=== PATIENT | female | born 1935 | race Caucasian/White ===

== ENCOUNTER → 2017-07-12 | Day surgery (SDC) | payer BC ==
[~2017-07-12] MED LIST: HYDROmorphone 2 MG/ML VIAL IV; LIDOCAINE 1% PF 2 ML VIAL. ID; LIDOCAINE 2% PF Vial for OR 5 ML VIAL.; MORPHINE SULFATE 2 MG/ML DISP.SYRIN. IV; ONDANSETRON PF 4 MG/2 ML VIAL. IV; PROCHLORPERAZINE 10 MG/2 ML VIAL. IV; PROPOFOL 20 ML IV; fentaNYL PF VIAL 100 MCG/2 ML VIAL IV
[2017-07-12] MEDS: IV RINGERS,LACTATED 1000ML 1,000 ML IV (06:31)
== END | disposition home or self-care (01) ==
LOC: ENDOS 05:55
DX: K64.0 First degree hemorrhoids (principal); K57.30 Diverticulosis of large intestine without perforation or abscess without bleeding; F41.9 Anxiety disorder, unspecified; Z86.718 Personal history of other venous thrombosis and embolism; Z90.710 Acquired absence of both cervix and uterus; Z87.440 Personal history of urinary (tract) infections; Z87.01 Personal history of pneumonia (recurrent); Z87.39 Personal history of other diseases of the musculoskeletal system and connective tissue; Z85.3 Personal history of malignant neoplasm of breast
CPT/HCPCS: 45378; J2704

== ENCOUNTER 2018-11-25 07:43 | Emergency (ER) | payer BC, MEDICARE ==
[~2018-11-25] VITALS: Ht 167.6 cm; Wt 85.7 kg
[~2018-11-25 07:43] MED LIST changes: +ACET325T9 PO; +AZIT250T PO; +Albuterol Sulfate NEB; +BUDE10.2 IH; +CALC1TAB PO; +CEFP200T PO; +DOXY25TA16 PO; +GUAI600T47 PO; -HYDROmorphone 2 MG/ML VIAL IV; -LIDOCAINE 1% PF 2 ML VIAL. ID; -LIDOCAINE 2% PF Vial for OR 5 ML VIAL.; +LISI-334 PO; -MORPHINE SULFATE 2 MG/ML DISP.SYRIN. IV; +MULT-658 PO; -ONDANSETRON PF 4 MG/2 ML VIAL. IV; +OXYC1TAB15 PO; +PRED20TA PO; -PROCHLORPERAZINE 10 MG/2 ML VIAL. IV; -PROPOFOL 20 ML IV; +PSYL0.5215 PO; +RIVA10TA PO; +TIOT4MIS3 IH; +TRAZ-118 PO; +VENTOLIN HFA18 GM IH; +WARF-31 PO; +WARF7.5T45 PO; -fentaNYL PF VIAL 100 MCG/2 ML VIAL IV
[2018-11-25 07:55] VITALS: BP 144/77
[2018-11-25] MEDS ORDERED: BENZONATATE 100 MG CAPSULE. PO ONE (08:15)
--- NOTE | 2018-11-25 08:32 | RAD ---
PA and lateral chest. HISTORY: Cough, short of air, sore throat PA and lateral views were taken of the chest. There is linear scarring on the left without change from an old study. Heart is normal in size. There is no pleural effusion or heart failure. There are no acute infiltrates. IMPRESSION: 1. Linear scarring on the left. 2. No acute infiltrates. Electronically signed by: Filippo Almonte MD (11/25/2018 8:28 AM) [facility]
[2018-11-25] MEDS ORDERED: AZIT250T PO (09:26)
[2018-11-25] MEDS ORDERED: HYDR115S2 PO (09:26)
--- NOTE | 2018-11-25 09:26 | PHYS DOC ---
Past Medical History Past Medical History: Asthma, Cancer, Hypertension, Pneumonia, Other Additional Past Medical Histor: INSOMNIA, BRAIN TUMOR- RESOLVED, UTERINe/breast ,CHRONIC BACK PAIN Past Surgical History: Hysterectomy Additional Past Surgical Histo: lymph nodes removed rt side Alcohol Use: None Drug Use: None Adult General Chief Complaint Chief Complaint: SORE THROAT HPI HPI Patient is a 83 year old female who presents with complaining of sore throat. Patient complaining of sore throat since yesterday with nasal congestion and had productive cough with clear sputum since last night as needed. Patient denies shortness of breath, chest pain, nausea and vomiting, diarrhea and constipation, urinary symptom, fever and chills and sick contact. Review of Systems Review of Systems Constitutional: Denies fever or chills [] Eyes: Denies change in visual acuity, redness, or eye pain [] HENT: Reports nasal congestion and sore throat Respiratory: Productive cough, denies shortness of breath Cardiovascular: No additional information not addressed in HPI [] GI: Denies abdominal pain, nausea, vomiting, bloody stools or diarrhea [] : Denies dysuria or hematuria [] Musculoskeletal: Denies back pain or joint pain [] Integument: Denies rash or skin lesions [] Neurologic: Denies headache, focal weakness or sensory changes [] Endocrine: Denies polyuria or polydipsia [] All other systems were reviewed and found to be within normal limits, except as documented in this note. Current Medications Current Medications Current Medications Medications (Trade) Dose Ordered Sig/Dolores Start Time Stop Time Status Last Admin Dose Admin Benzonatate (Tessalon Perle) 100 mg 1X ONCE 11/25/18 08:15 11/25/18 08:16 DC 11/25/18 08:15 100 MG Allergies Allergies Allergies Coded Allergies Type Severity Reaction Last Updated Verified No Known Drug Allergies 07/12/17 No Physical Exam Physical Exam Constitutional: Well developed, well nourished, mild distress, non-toxic appearance. [] HENT: Normocephalic, atraumatic, bilateral external ears normal, oropharynx moist, pharyngeal erythema without edema, no oral exudates, nose normal. [] Eyes: PERRLA, EOMI, conjunctiva normal, no discharge. [] Neck: Normal range of motion, no tenderness, supple, no stridor. [] Cardiovascular:Heart rate regular rhythm, no murmur [] Lungs & Thorax: Bilateral breath sounds clear to auscultation [] Abdomen: Bowel sounds normal, soft, no tenderness, no masses, no pulsatile masses. [] Skin: Warm, dry, no erythema, no rash. [] Back: No tenderness, no CVA tenderness. [] Extremities: No tenderness, no cyanosis, no clubbing, ROM intact, no edema. [] Neurologic: Alert and oriented X 3, normal motor function, normal sensory function, no focal deficits noted. [] Psychologic: Affect normal, judgement normal, mood normal. [] Current Patient Data Vital Signs Vital Signs Date Time Temp Pulse Resp B/P (MAP) Pulse Ox O2 Delivery O2 Flow Rate FiO2 11/25/18 07:55 98.3 84 18 144/77 (99 96 98.3 Lab Values Laboratory Tests Test 11/25/18 08:00 Group A Streptococcus Rapid Negative (NEGATIVE) EKG EKG [] Radiology/Procedures Radiology/Procedures [facility] [address] [place], [place] [id number] IMAGING REPORT Signed PATIENT: JUANIS RICE ACCOUNT: [id number] : 1935 LOCATION: ER AGE: 83 SEX: F EXAM STATUS: REG ER ORD. PHYSICIAN: MERE BILL MD REASON: cough PROCEDURE: CHEST PA & LATERAL PA and lateral chest. HISTORY: Cough, short of air, sore throat PA and lateral views were taken of the chest. There is linear scarring on the left without change from an old study. Heart is normal in size. There is no pleural effusion or heart failure. There are no acute infiltrates. IMPRESSION: 1. Linear scarring on the left. 2. No acute infiltrates. Electronically signed by: Filippo Almonte MD (11/25/2018 8:28 AM) [facility] DICTATED and SIGNED BY: FILIPPO ALMONTE MD DATE: 11/25/1828 Course & Med Decision Making Course & Med Decision Making Pertinent Labs and Imaging studies reviewed. (See chart for details) Evolution of patient in ER showed 83-year-old female patient with history of asthma and COPD did not home oxygen with complaining of URI symptoms since yesterday. Patient has negative strep test and chest x-ray and felt better with Tessalon given in ER. Plan to discharge patient home to diagnose of upper respiratory infection. Dragon Disclaimer Dragon Disclaimer This electronic medical record was generated, in whole or in part, using a voice recognition dictation system. Departure Departure Impression: Primary Impression: Upper respiratory infection Disposition: HOME, SELF-CARE (at 0 [phone]) Condition: IMPROVED Referrals: QUENTIN POLANCO MD (PCP) Patient Instructions: Cough, Adult, Upper Respiratory Infection, Adult Additional Instructions: Drink plenty of liquids Follow-up with your primary care physician in 3-5 days Return to ER if not getting better Scripts Azithromycin (ZITHROMAX) 250 Mg Tablet 1 PKG PO UD for infection, #1 PKG Prov: MERE BILL MD 11/25/18 Hydrocodone/Chlorphen P-Stirex (Tussionex Pennkinetic Susp) 115 Ml Edilia.er.12h 5 ML PO BID for cough and congestion, #60 ML Prov: MERE BILL MD 11/25/18 MERE BILL MD Nov 25, 2018 09:26
== END 2018-11-25 10:00 | disposition home or self-care (01) ==
LOC: ER 07:43
DX: J06.9 Acute upper respiratory infection, unspecified (principal); I10 Essential (primary) hypertension; J45.909 Unspecified asthma, uncomplicated
CPT/HCPCS: 71046; 87070; 87880; 99284; 99285

== ENCOUNTER → 2019-12-03 | Outpatient (CLI) | payer BC ==
[~2019-12-03] MED LIST changes: +HYDR115S2 PO
--- NOTE | 2019-12-03 12:53 | KCIC ---
Examination: Ultrasound left neck HISTORY: History of large area of fullness in the left knee COMPARISON: None available. Findings/ impression: Ultrasound of the left neck in the region of fullness demonstrate no obvious evidence of mass or lesion. If clinical suspicion persists consider CT for better evaluation. Electronically signed by: Kareem Wolfe MD (12/03/2019 12:50 PM) [id number]
== END | disposition home or self-care (01) ==
LOC: KCIC US 10:13
PROVIDERS: ATTEND Family Medicine
DX: R25.1 Tremor, unspecified (principal)
CPT/HCPCS: 76536

== ENCOUNTER → 2019-12-11 | Outpatient (CLI) | payer BC ==
--- NOTE | 2019-12-11 12:54 | RAD ---
Chest, PA and Lateral: Technique: PA and lateral views of the chest were obtained. History: Dyspnea. Comparison: 11/25/2018. Findings: The cardiomediastinal silhouette grossly appears unremarkable. Mild prominent appearing bilateral interstitial lung markings likely chronic interstitial changes. Moderate degenerative changes thoracic spine IMPRESSION: No acute cardiopulmonary findings. Electronically signed by: Kareem Wolfe MD (12/11/2019 12:51 PM) [id number]
== END ==
LOC: RAD 12:03
PROVIDERS: ATTEND Family Medicine
DX: M47.814 Spondylosis without myelopathy or radiculopathy, thoracic region (principal); R06.00 Dyspnea, unspecified
CPT/HCPCS: 71046

== ENCOUNTER → 2019-12-23 | Outpatient (CLI) | payer BC ==
--- NOTE | 2019-12-23 15:22 | RAD ---
CT HEAD INDICATION: Trauma COMPARISON: 04/09/2040 Exposure: One or more of the following individualized dose reduction techniques were utilized for this examination: 1. Automated exposure control 2. Adjustment of the mA and/or kV according to patient size 3. Use of iterative reconstruction technique TECHNIQUE: 5 mm contiguous axial images were obtained from the skull base to the vertex in both bone and soft tissue algorithm. FINDINGS: No abnormal attenuation within the brain parenchyma. No evidence of acute intracranial hemorrhage. No extra-axial fluid collections. No mass effect or midline shift. Ventricular size is appropriate. Basal cisterns are patent. No fractures identified.Abraham-white differentiation is preserved.Globes and orbits are within normal limits. Paranasal sinuses and mastoid air cells are clear. IMPRESSION: No acute intracranial findings. Electronically signed by: Kareem Wolfe MD (12/23/2019 3:19 PM) [id number]
== END | disposition home or self-care (01) ==
LOC: CT 14:37
PROVIDERS: ATTEND Family Medicine
DX: R25.1 Tremor, unspecified (principal)
CPT/HCPCS: 70450

== ENCOUNTER → 2020-01-10 | Outpatient (CLI) | payer BC ==
[~2020-01-10] MED LIST changes: +IOHEXOL 350 MG/ML 100 ML VIAL. IV ONE
--- NOTE | 2020-01-10 10:18 | RAD ---
Examination: CT angiography chest with IV contrast. HISTORY: History of chest pain COMPARISON: 12/28/2014 TECHNIQUE: Axial CT angiographic images of chest with IV contrast. Coronal and sagittal 3-D MIP reformats are performed Exposure: One or more of the following individualized dose reduction techniques were utilized for this examination: 1. Automated exposure control 2. Adjustment of the mA and/or kV according to patient size 3. Use of iterative reconstruction technique. FINDINGS: The visualized thyroid gland grossly appears unremarkable. The central airways are patent. Mild cardiomegaly. The caliber of the aorta grossly appears unremarkable. There is no evidence of filling defect identified in the main pulmonary arterial trunk and right and left main pulmonary arteries and the visualized lobar, segmental branches of the pulmonary arteries.Linear atelectasis or infiltrate identified in the left lingula. The visualized liver, adrenals, spleen grossly appears unremarkable. Moderate degenerative changes thoracic spine. There is a 2 cm cystic structure identified in the right breast smaller compared to prior exam probably old hematoma or seroma. IMPRESSION: 1. No evidence of pulmonary embolism. 2. Linear atelectasis or infiltrate left lingula. 3. There is a 2 cm cystic structure identified in the right breast smaller compared to prior exam probably old hematoma or seroma. Electronically signed by: Kareem Wolfe MD (01/10/2020 10:15 AM) [id number]
== END | disposition home or self-care (01) ==
LOC: CT 08:24
PROVIDERS: ATTEND Internal Medicine Pulmonary Disease
DX: I51.7 Cardiomegaly (principal); M47.814 Spondylosis without myelopathy or radiculopathy, thoracic region; Z86.711 Personal history of pulmonary embolism
CPT/HCPCS: 71275; Q9967

== ENCOUNTER 2020-09-03 10:34 | Emergency (ER) | payer BC ==
[~2020-09-03] VITALS: Ht 165.1 cm; Wt 95.0 kg
[~2020-09-03 10:34] MED LIST changes: -IOHEXOL 350 MG/ML 100 ML VIAL. IV ONE; -LISI-334 PO; +LISI20TA18 PO
--- NOTE | 2020-09-03 12:24 | PHYS DOC ---
Past Medical History Past Medical History: Asthma, Cancer, COPD, Hypertension, Pneumonia, Other Additional Past Medical Histor: INSOMNIA, BRAIN TUMOR- RESOLVED, UTERINe/breast,CHRONIC BACK PAIN Past Surgical History: Hysterectomy Additional Past Surgical Histo: lymph nodes removed rt side Smoking Status: Never Smoker Alcohol Use: None Drug Use: None General Adult EDM: Chief Complaint: SHORTNESS OF BREATH HPI: HPI: Patient is a 84 year old female with history of COPD, asthma, hypertension, who presents to the ED today complaining of shortness of breath especially on exertion, symptoms for a week. Has tried her inhaler with no relief. Denies any unusual cough or fever. Denies any nasal congestion. Patient is also complaining of "not feeling right in the head". She states this has been going on for a while, she is not definitive on how long this a while stands for. She states she has been seen by her PCP who recommended she has an MRI of the brain. She states she would like the MRI done in the ED. Informed patient we can do a CAT scan of the head when not able to do an MRI. Denies any headache. Denies any dizziness. Review of Systems: Review of Systems: Constitutional: Denies fever or chills. [] Eyes: Denies change in visual acuity. [] HENT: Denies nasal congestion or sore throat. [] Respiratory: Reports shortness of breath. Denies unusual cough Cardiovascular: Denies chest pain or edema. [] GI: Denies abdominal pain, nausea, vomiting, bloody stools or diarrhea. [] : Denies dysuria. [] Musculoskeletal: Denies back pain or joint pain. [] Integument: Denies rash. [] Neurologic: Reports not feeling right in the head. Denies headache, focal weakness or sensory changes. [] Psychiatric: Denies depression or anxiety. [] Heart Score: Risk Factors: Risk Factors: DM, Current or recent (<one month) smoker, HTN, HLP, family history of CAD, obesity. Risk Scores: Score 0 - 3: 2.5% MACE over next 6 weeks - Discharge Home Score 4 - 6: 20.3% MACE over next 6 weeks - Admit for Clinical Observation Score 7 - 10: 72.7% MACE over next 6 weeks - Early Invasive Strategies Allergies: Allergies: Allergies Coded Allergies Type Severity Reaction Last Updated Verified No Known Drug Allergies 07/12/17 No Physical Exam: PE: Constitutional: Well developed, well nourished, no acute distress, non-toxic appearance. [] HENT: Normocephalic, atraumatic, bilateral external ears normal, oropharynx moist, no oral exudates, nose normal. [] Eyes: PERRLA, EOMI, conjunctiva normal, no discharge. [] Neck: Normal range of motion, no tenderness, supple, no stridor. [] Cardiovascular:Heart rate regular rhythm, no murmur [] Lungs & Thorax: Bilateral breath sounds clear to auscultation [] Abdomen: Bowel sounds normal, soft, no tenderness, no masses, no pulsatile masses. [] Skin: Warm, dry, no erythema, no rash. [] Back: No tenderness, no CVA tenderness. [] Extremities: No tenderness, no cyanosis, no clubbing, ROM intact, no edema. [] Neurologic: Alert and oriented X 3, normal motor function, normal sensory function, no focal deficits noted. [] Psychologic: Affect normal, judgement normal, mood normal. [] Current Patient Data: Vital Signs: Vital Signs Date Time Temp Pulse Resp B/P (MAP) Pulse Ox O2 Delivery O2 Flow Rate FiO2 09/03/20 10:47 98.7 77 26 187/94 (125) 97 Room Air 98.7 EKG: EKG: [] Radiology/Procedures: Radiology/Procedures: []PROCEDURE: CT HEAD WO CONTRAST CT HEAD INDICATION: History of brain tumor, Head not feeling right-XRAY : COMPARISON: 12/23/2019. Exposure: One or more of the following individualized dose reduction techniques were utilized for this examination: 1. Automated exposure control 2. A djustment of the mA and/or kV according to patient size 3. Use of iterative reconstruction technique TECHNIQUE: 5 mm contiguous axial images were obtained from the skull base to the vertex in both bone and soft tissue algorithm. FINDINGS: No abnormal attenuation within the brain parenchyma. No evidence of acute intracranial hemorrhage. No extra-axial fluid collections. No mass effect or midline shift. Ventricular size is appropriate. Basal cisterns are patent. No fractures identified.Abraham-white differentiation is preserved.Globes and orbits are within normal limits. Paranasal sinuses and mastoid air cells are clear. IMPRESSION: No acute intracranial findings. Electronically signed by: Kareem Wolfe MD (09/03/2020 12:26 PM) [id number] DICTATED and SIGNED BY: KAREEM WOLFE MD DATE: 09/03/20 [id number] PROCEDURE: PORTABLE CHEST 1V XR CHEST 1V CLINICAL INDICATIONS: Reason: Shortness of air COMPARISON: December 11, 2019. Findings: No acute lung infiltrate or pleural effusion or pulmonary edema or lung mass or pneumothorax is seen. The heart size, pulmonary vasculature, mediastinum and both jose carlos are unremarkable. IMPRESSION: No acute radiographic abnormality is seen. Electronically signed by: Kymberly Decker MD (09/03/2020 12:39 PM) [id number] DICTATED and SIGNED BY: KYMBERLY DECKER MD DATE: 09/03/20 [id number] 0 Course & Med Decision Making: Course & Med Decision Making Pertinent Labs and Imaging studies reviewed. (See chart for details) This is a 84-year-old female patient presented to the ED today complaining of shortness of breath for 1 week and not feeling right in the head for 1 week. She states she had an MRI ordered as an outpatient and since we cannot do it in the ED she would like a CAT scan. CT of the head is negative, chest x-ray is negative. Labs are negative for any acute findings, EKG is negative. O2 sats have been above 97% on room air. Patient is afebrile. Will be discharged on Medrol Dosepak and to continue her breathing treatments. She was tested for COVID-19 and results will be called to her when available Dragrosette Disclaimer: Jim Disclaimer: This electronic medical record was generated, in whole or in part, using a voice recognition dictation system. Departure Departure Impression: Primary Impression: COPD with acute exacerbation Additional Impression: Person under investigation for COVID-19 Disposition: 01 DC HOME SELF CARE/HOMELESS Condition: STABLE Referrals: QUENTIN POLANCO MD (PCP) Follow-up in 1 week Patient Instructions: Chronic Obstructive Pulmonary Disease Exacerbation Additional Instructions: You were evaluated in the emergency room for shortness of breath. Your chest x- ray is negative, your cardiac work-up as well as regular labs were negative for any acute findings. Your CT of the head is negative for any acute findings. We will put you on a Medrol Dosepak/steroid, take it as prescribed, continue breathing treatments at home. Follow-up with your doctor in 1 week. You were tested for COVID-19, quarantine yourself until you get results Scripts Albuterol Sulfate (PROAIR HFA INHALER) 8.5 Gm Hfa.aer.ad 2 PUFF IH PRN Q4-6HRS PRN for wheezing for 21 Days, #1 INHALER 0 Refills Prov: DAGOBERTO RAMON HOTEL MAINTENANCE ENGINEER 09/03/20 Methylprednisolone (MEDROL) 4 Mg Tab.ds.pk 1 PKG PO UD, #1 PKG Prov: DAGOBERTO RAMON HOTEL MAINTENANCE ENGINEER 09/03/20 DAGOBERTO RAMON HOTEL MAINTENANCE ENGINEER Sep 03, 2020 12:24
--- NOTE | 2020-09-03 12:28 | RAD ---
CT HEAD INDICATION: History of brain tumor, Head not feeling right-XRAY : COMPARISON: 12/23/2019. Exposure: One or more of the following individualized dose reduction techniques were utilized for thi s examination: 1. Automated exposure control 2. Adjustment of the mA and/or kV according to patient size 3. Use of iterative reconstruction technique TECHNIQUE: 5 mm contiguous axial images were obtained from the skull base to the vertex in both bone and soft tissue algorithm. FINDINGS: No abnormal attenuation within the brain parenchyma. No evidence of acute intracranial hemorrhage. No extra-axial fluid collections. No mass effect or midline shift. Ventricular size is appropriate. Basal cisterns are patent. No fractures identified.Abraham-white differentiation is preserved.Globes and orbits are within normal l imits. Paranasal sinuses and mastoid air cells are clear. IMPRESSION: No acute intracranial findings. Electronically signed by: Kareem Wolfe MD (09/03/2020 12:26 PM) [id number]
--- NOTE | 2020-09-03 12:41 | RAD ---
XR CHEST 1V CLINICAL INDICATIONS: Reason: Shortness of air COMPARISON: December 11, 2019. Findings: No acute lung infiltrate or pleural effusion or pulmonary edema or lung mass or pneumothora x is seen. The heart size, pulmonary vasculature, mediastinum and both jose carlos are unremarkable. IMPRESSION: No acute radiographic abnormality is seen. Electronically signed by: Oniel Decker MD (09/03/2020 12:39 PM) [id number]
[2020-09-03 12:57] LABS: BASO # 0.1 x10^3/uL (0.0-0.2); BASO % 1 % (0-3); EOS # 0.1 x10^3/uL (0.0-0.7); EOS % 2 % (0-3); HEMATOCRIT 33.4 % (36.0-47.0); HEMOGLOBIN 11.3 g/dL (12.0-15.5); LYMPH # 1.6 x10^3/uL (1.0-4.8); LYMPH % 24 % (24-48); MEAN CORPUSCULAR HEMOGLOBIN 30 pg (25-35); MEAN CORPUSCULAR HGB CONC 34 g/dL (31-37); MEAN CORPUSCULAR VOLUME 88 fL (79-100); MONO # 0.7 x10^3/uL (0.0-1.1); MONO % 10 % (0-9); NEUT # 4.3 x10^3/uL (1.8-7.7); NEUT % 63 % (31-73); PLATELET COUNT 246 x10^3/uL (140-400); RED CELL DISTRIBUTION WIDTH 15.8 % (11.5-14.5); WHITE BLOOD COUNT 6.8 x10^3/uL (4.0-11.0)
[2020-09-03 13:07] LABS: CALCIUM 9.8 mg/dL (8.5-10.1); CREATININE 1.1 mg/dL (0.6-1.0); GFR 47.4; POTASSIUM 4.6 mmol/L (3.5-5.1)
[2020-09-03 13:13] LABS: ALBUMIN 3.6 g/dL (3.4-5.0); TOTAL BILIRUBIN 0.5 mg/dL (0.2-1.0); TOTAL PROTEIN 7.3 g/dL (6.4-8.2)
[2020-09-03 13:14] LABS: INFLUENZA A PATIENT NEGATIVE (NEGATIVE); INFLUENZA B PATIENT NEGATIVE (NEGATIVE)
--- NOTE | 2020-09-03 13:15 | EKG ---
[facility] [address] [place] [address] Test Date: 2020-09-03 Test Time: 10:59:32 Pat Name: JUANIS RICE Department: Room: Gender: F Equity Holder: : 1935 Requested By: DAGOBERTO RAMON Order Number: [id number] Reading MD: Measurements Intervals [place] Rate: 73 P: MD: QRS: -6 QRSD: 88 T: 55 QT: 374 QTc: 416 Interpretive Statements ATRIAL FLUTTER LEFTWARD AXIS ABNORMAL ECG RI6.01 No previous ECG available for comparison
[2020-09-03 13:16] LABS: PROTHROMBIN TIME PATIENT 13.3 SEC (11.7-14.0)
[2020-09-03 13:31] LABS: CREATINE KINASE 84 U/L (26-192)
[2020-09-03] MEDS ORDERED: ALBU2.5V8 IH (14:12)
[2020-09-03] MEDS ORDERED: METH4TAB2 PO (14:12)
[2020-09-03 14:31] VITALS: BP 169/71
--- NOTE | 2020-09-04 09:48 | NUR ---
IP: Attempted to call pt concerning COVID test results. No answer. Left a voicemail to return the call.
--- NOTE | 2020-09-04 10:40 | NUR ---
IP: Pt returned the call. I informed her of the negative COVID test. Pt verbalized understanding.
== END 2020-09-03 15:07 | disposition home or self-care (01) ==
LOC: ER 10:34
DX: J44.1 Chronic obstructive pulmonary disease with (acute) exacerbation (principal); Z20.822 Contact with and (suspected) exposure to COVID-19; R06.02 Shortness of breath; I10 Essential (primary) hypertension; G89.29 Other chronic pain; Z90.710 Acquired absence of both cervix and uterus; Z98.890 Other specified postprocedural states; Z85.9 Personal history of malignant neoplasm, unspecified
CPT/HCPCS: 36415; 70450; 71045; 80053; 82553; 83605; 83735; 83880; 84145; 84443; 84484; 85025; 85610; 85730; 87040; 87804; 93005; 99285; C9803; U0003

== ENCOUNTER → 2021-02-24 | Outpatient (CLI) | payer BC ==
[~2021-02-24] MED LIST changes: +ALBU2.5V8 IH; +METH4TAB2 PO
--- NOTE | 2021-02-24 13:57 | RAD ---
EXAM: Bilateral diagnostic mammogram; right breast sonogram. HISTORY: 85-year-old female presents with a palpable right breast lump and breast pain. The patient h as a history of prior right breast cancer and right breast conservation therapy. TECHNIQUE: Full-field digital craniocaudal and mediolateral oblique views of both breasts and exagger ated cranial caudal view of the right breast and true lateral view of the left breast are obtained fo r evaluation. Computer aided detection was applied. Sonographic imaging of the right breast targeted to sites of reported pain and palpable concern was also performed. COMPARISON: 07/20/2020, 07/19/2019, 07/18/2018 BREAST PARENCHYMAL DENSITY: Level B - Scattered fibroglandular densities. FINDINGS: There are stable findings consistent with right breast conservation therapy. There is stabl e increased density and architectural distortion within the posterior lateral breast consistent with a lumpectomy bed. There are benign calcifications within the right breast. There is stable asymmetry within the lateral subareolar aspect of the left breast compared to prior studies. There are is no ne w suspicious mass, calcification or distortion within either breast. Sonographic imaging of the right breast demonstrates no suspicious finding at the 3:00 position to co rresponds with the site of reported palpable concern. There is an angulated region of hypoechogenicit y without internal blood flow at the 9:00 position 11 cm from the nipple which underlies a lumpectomy scar and is likely due to postoperative scarring. IMPRESSION: 1. Findings consistent with right breast conservation therapy. There is suspected parenchymal scarrin g within the 9:00 position 11 cc of the nipple underlying a site of reported pain. Given the absence of prior sonograms to assess stability in this location, six-month sonographic follow-up of the right breast is recommended. 2. No suspicious mammographic or sonographic correlate for a reported palpable lump within the medial right breast at the 3:00 position. Continued clinical follow-up of palpable abnormalities is recomme nded. Negative imaging should not preclude the decision to biopsy a palpable abnormality if there is continuing concern. 3. No new suspicious mammographically finding within the left breast. 4. BI-RADS Category 3: Probably benign finding(s). Short term follow up with a right breast sonogram in 6 months is recommended. If your mammogram demonstrates that you have dense breast tissue, which could hide abnormalities, and if you have other risk factors for breast cancer that have been identified, you might benefit from s upplemental screening tests that may be suggested by your ordering physician. Dense breast tissue, i n and of itself, is a relatively common condition. This information is not provided to cause undue c oncern, but rather to raise your awareness and to promote discussion with your physician regarding th e presence of other risk factors, in addition to dense breast tissue. A report of your mammography re sults will be sent to you and your physician. You should contact your physician if you have any ques tions or concerns regarding this report. Mammography is a sensitive method for finding small breast cancers, but it does not detect them all a nd is not a substitute for careful clinical examination. A negative mammogram does not negate a clin ically suspicious finding and should not result in delay in biopsying a clinically suspicious abnorma lity. PQRS compliance statement - Patient information was entered into a reminder system with a target due date for the next mammogram. "Our facility is accredited by the [employer] Mammography Program." Electronically signed by: Mita Small MD (02/24/2021 1:55 PM) [id number]
--- NOTE | 2021-02-24 14:44 | RAD ---
EXAM: Thoracic spine, 3 views; chest and right ribs, 3 views. HISTORY: Pain. COMPARISON: 09/03/2020 and 01/10/2020 FINDINGS: Thoracic spine: 3 views of the thoracic spine are obtained. There is a mild left greater than right T 8 compression fracture with superior endplate Schmorl's node. There is no significant retropulsion of the cortex at this level. This is new compared to the prior CT dated 01/10/2020 There is also a moder ate chronic appearing L1 compression fracture without retropulsion of the cortex. There is stable com pared to the prior CT. There is multilevel endplate remodeling. There is disc space narrowing and ost eophytosis of the lower cervical levels, not formally assessed on this exam. Chest and right ribs: A frontal view of the chest and 2 views of the right ribs are obtained. There i s linear scarring within the lingula and bilateral lung bases. There is no consolidation, protrusion or pneumothorax. The heart is normal in size. There are chronic appearing fracture deformities of the lateral right fourth, fifth and sixth ribs. IMPRESSION: 1. Moderate T8 compression fracture. The imaging appearance favors a chronic etiology. This is new co mpared to a CT performed 01/10/2020. There is a stable chronic moderate compression fracture at L1. 2. Suspected healed right fourth through sixth rib fractures. 3. Bilateral basilar and lingular linear scarring. 4. Degenerative change involving the lower cervical spine, described above. Electronically signed by: Mita Small MD (02/24/2021 2:42 PM) [id number]
== END ==
LOC: MAMMO 12:17
PROVIDERS: ATTEND Family Medicine
DX: S22.060A Wedge compression fracture of T7-T8 vertebra, initial encounter for closed fracture (principal); M47.812 Spondylosis without myelopathy or radiculopathy, cervical region; M48.02 Spinal stenosis, cervical region; M25.78 Osteophyte, vertebrae; R92.1 Mammographic calcification found on diagnostic imaging of breast; N63.10 Unspecified lump in the right breast, unspecified quadrant; J98.4 Other disorders of lung; X58.XXXA Exposure to other specified factors, initial encounter; Y93.89 Activity, other specified; Y92.89 Other specified places as the place of occurrence of the external cause; Y99.8 Other external cause status
CPT/HCPCS: 71101; 72072; 76641; 77066

== ENCOUNTER 2021-08-07 22:23 | Emergency (ER) | payer BC ==
[~2021-08-07] VITALS: Ht 165.1 cm; Wt 95.5 kg
--- NOTE | 2021-08-07 22:36 | PHYS DOC ---
Past Medical History Past Medical History: Asthma, Cancer, COPD, Hypertension, Pneumonia, Other Additional Past Medical Histor: INSOMNIA, BRAIN TUMOR- RESOLVED, UTERINe/breast,CHRONIC BACK PAIN Past Surgical History: Hysterectomy Additional Past Surgical Histo: lymph nodes removed rt side Smoking Status: Never Smoker Alcohol Use: None Drug Use: None General Adult HPI: HPI: Patient is a 85 year old female who presents with shortness of breath which began today. She reports wheezing. She has a rare, dry cough. Denies sputum changes or hemoptysis. She denies fevers or chills. She denies chest pain. She denies nausea, vomiting, tammy pain, dizziness or diaphoresis. She denies lower extremity pain or swelling. She has a history of asthma and COPD. She has had to use her rescue inhalers with increased frequency today. She denies recent hospitalization, denies recent travel history. She has been fully vaccinated against COVID-19, she also has reportedly received her influenza vaccine. She denies fevers or chills. The patient does report she has a history of pulmonary embolus, which was treated many years ago. She is not currently taking anticoagulants. She is not sure why she had a pulmonary embolus. Also, she would like for me to examine her right arm, she bumped it a few days ago and has a bruise, she feels she needs an x-ray. Review of Systems: Review of Systems: Constitutional: Denies fever or chills. [] HENT: Denies nasal congestion or sore throat. [] Respiratory: Rare, dry cough. Reports dyspnea and wheezing. Cardiovascular: Denies chest pain or edema. [] GI: Denies abdominal pain, nausea, vomiting] Musculoskeletal: Denies back pain or joint pain. [] Integument: Denies rash. [] Neurologic: Denies headache, focal weakness or sensory changes. [] Psychiatric: Mild anxiety. [] Heart Score: C/O Chest Pain: No Risk Factors: Risk Factors: DM, Current or recent (<one month) smoker, HTN, HLP, family history of CAD, obesity. Risk Scores: Score 0 - 3: 2.5% MACE over next 6 weeks - Discharge Home Score 4 - 6: 20.3% MACE over next 6 weeks - Admit for Clinical Observation Score 7 - 10: 72.7% MACE over next 6 weeks - Early Invasive Strategies Allergies: Allergies: Allergies Coded Allergies Type Severity Reaction Last Updated Verified No Known Drug Allergies 07/12/17 No Physical Exam: PE: Constitutional: Well developed, well nourished, no acute distress, non-toxic appearance. [] HENT: Normocephalic, atraumatic, oropharynx is patent and clear, mucous membranes are moist Eyes: Injective are normal Neck: Normal range of motion, no tenderness, supple, no stridor, trachea midline, no JVD Cardiovascular:Heart rate regular rhythm, +2 radial and +2 posterior tibial pulses bilaterally, warm and well-perfused Lungs & Thorax: Bilateral, diffuse expiratory wheezing, rare coarse rhonchi cleared no stridor. No rales. Mild tachypnea. No retractions. She speaks in full and clear sentences. No cyanosis. Abdomen: Abdomen soft, nondistended, nontender to palpation Skin: Warm, dry, no erythema, no rash. [] Back: No tenderness, no CVA tenderness. [] Extremities: No calf tenderness. No obvious limb deformity. There is mild soft tissue swelling and contusion of her right bicep area. No bony tenderness. Fu ll active and passive range of motion of her entire right upper extremity. No wrist drop Neurologic: Alert and oriented X 3, normal motor function, normal sensory function, no focal deficits noted. [] Psychologic: She is initially mildly anxious, she is pleasant and cooperative. [] EKG: EKG: EKG is interpreted at 2348 Rhythm is sinus Rate is 77 bpm [place] is left No STEMI Radiology/Procedures: Radiology/Procedures: IMAGING REPORT Signed PATIENT: JUANIS RICE ACCOUNT: [id number] : 1935 LOCATION: ER AGE: 85 SEX: F EXAM STATUS: REG ER ORD. PHYSICIAN: JACY CHAVEZ DO REASON: dyspnea PROCEDURE: PORTABLE CHEST 1V AP chest x-ray HISTORY: Dyspnea. COMPARISON: Chest x-ray February 25, 2012 FINDINGS: Heart size normal. Aortic arch calcified plaque. No pneumothorax. No pleural effusions. Linear atelectasis or scarring left lung base stable. Right lung is clear. Thoracic compression fractures and right rib fractures seen to better detail on the prior x-rays. IMPRESSION: No acute process. Thin linear atelectasis or scarring left lung base is stable. Right humerus AP lateral x-rays HISTORY: Right arm pain after lifting injury. FINDINGS: No fracture. No dislocation. No bone lesion. Small densities along the anterior and posterior soft tissues of the lower arm perhaps due to artifact from something on the skin surface versus soft tissue calcifications or foreign bodies if there was abrasion or penetrating trauma. IMPRESSION: No acute osseous injury. See above. Electronically signed by: Johann Rascon MD (08/07/2021 11:46 PM) [facility] [place]CTATED and SIGNED BY: JOHANN RASCON MD DATE: 08/07/21 [id number] IMAGING REPORT Signed PATIENT: JUANIS RICE ACCOUNT: [id number] : 1935 LOCATION: ER AGE: 85 SEX: F EXAM STATUS: REG ER ORD. PHYSICIAN: JACY CHAVEZ DO REASON: dyspnea, history of PE PROCEDURE: CT ANGIOGRAPHY CHEST CT angiography chest with contrast PQRS statement: CT scans at this facility use dose reduction including either automated exposure control, iterative reconstructions, and /or weight based radiation dosing via mA and kV modification when appropriate to reduce radiation dose to as low as reasonably achievable. Contrast: 90 mL Omnipaque 350 intravenous contrast with 3-D MIP reconstructions of the arteries acquired. HISTORY: Dyspnea. History of pulmonary embolism. COMPARISON: CT chest January 10, 2020 FINDINGS: There are 11 rib-bearing vertebra presumably due to nonrib-bearing T12 thoracic vertebra. Using this numbering of the vertebra there is a chronic T12 vertebral compression fracture which is stable. There is a T7 vertebral compression fracture with bony sclerosis and 50% height loss which is age- indeterminate but is new from prior imaging. Calcified plaque coronary arteries and thoracic aorta. Heart size normal. Esophagus unremarkable. No pulmonary artery emboli. No adenopathy in the chest. Surgical lumpectomy site with chronic seroma or fat necrosis right breast again demonstrated. Trachea and bronchi are unremarkable. Thin linear discoid atelectasis lung bases. Basilar right lower lobe 3 mm solid nodule adjacent diaphragm image 107 is new. IMPRESSION: 1. No acute process. No pulmonary artery emboli. 2. 3 mm solid nodule of the basilar right lower lobe adjacent of the diaphragm is new from prior imaging in 2019. Consider follow-up CT chest imaging in 6 months. 3. Age-indeterminate mid thoracic vertebral compression fracture new from prior imaging as described above. Electronically signed by: Johann Rascon MD (08/08/2021 2:14 AM) [facility] and SIGNED BY: JOHANN RASCON MD DATE: 08/08/21 [id number] 0 Course & Med Decision Making: Course & Med Decision Making Pertinent Labs and Imaging studies reviewed. (See chart for details) The patient is given IV Solu-Medrol as well as DuoNeb treatment. She reports feeling much better. She is resting comfortably. She manifests no evidence of hypoxia or distress. Repeat lung exam is clear, no wheezing. She manifests no evidence of tachypnea or any distress. I have discussed the findings, differential diagnosis and plan of care with her. Emergency department work-up is unremarkable for any obvious acute life-threatening process at this time. She is anxiously awaiting discharge. She reports that she has plenty of albuterol at home. She also has plenty of her regularly prescribed Bipin, including her daily maintenance inhaled steroid. I told her to contact her PCP and medical collections representative for follow-up. Return precautions are given. She verbalizes understanding Jim Disclaimer: Jim Disclaimer: This electronic medical record was generated, in whole or in part, using a voice recognition dictation system. Departure Departure Impression: Primary Impression: Acute exacerbation of chronic obstructive pulmonary disease (COPD) Additional Impression: Contusion of right arm Qualified Codes: S40.021A - Contusion of right upper arm, initial encounter Disposition: HOME / SELF CARE / HOMELESS Condition: STABLE Referrals: QUENTIN POLANCO MD (PCP) Patient Instructions: Chronic Obstructive Pulmonary Disease Exacerbation Additional Instructions: Take the full course of prednisone as directed. Use your inhalers as directed. Return to the ER for chest pain, coughing up blood, fever 100.4 or higher, vomiting, dehydration, weakness or any other concerns. Please contact your primary care doctor on Monday to arrange for close follow-up. Your blood pressure is also been elevated more than usual for you here, make sure you follow-up for this as well. Scripts Prednisone (PREDNISONE) 50 Mg Tablet 1 TAB PO DAILY for 4 Days, #4 TAB start next dose on 08/09/21 Prov: JACY CHAVEZ DO 08/08/21 JACY CHAVEZ DO Aug 07, 2021 22:36
[2021-08-07] MEDS ORDERED: IPRATRPIUM/ALBUTEROL 0.5/2.5MG 3 ML NEBU. NEB ONE (22:45)
[2021-08-07] MEDS ORDERED: methylPREDNISolone SOD SUCC PF 125 MG/2 ML VIAL. IV ONE (22:45)
[2021-08-07 23:41] LABS: BASO # 0.1 x10^3/uL (0.0-0.2); BASO % 1 % (0-3); EOS # 0.3 x10^3/uL (0.0-0.7); EOS % 4 % (0-3); HEMOGLOBIN 10.6 g/dL (12.0-15.5); LYMPH # 1.9 x10^3/uL (1.0-4.8); LYMPH % 23 % (24-48); MEAN CORPUSCULAR HEMOGLOBIN 29 pg (25-35); MEAN CORPUSCULAR HGB CONC 32 g/dL (31-37); MEAN CORPUSCULAR VOLUME 89 fL (79-100); MONO % 13 % (0-9); NEUT # 4.8 x10^3/uL (1.8-7.7); NEUT % 60 % (31-73); PLATELET COUNT 261 x10^3/uL (140-400); RED BLOOD COUNT 3.71 x10^6/uL (3.50-5.40); RED CELL DISTRIBUTION WIDTH 16.6 % (11.5-14.5); WHITE BLOOD COUNT 8.1 x10^3/uL (4.0-11.0)
--- NOTE | 2021-08-07 23:48 | RAD ---
AP chest x-ray HISTORY: Dyspnea. COMPARISON: Chest x-ray February 25, 2012 FINDINGS: Heart size normal. Aortic arch calcified plaque. No pneumothorax. No pleural effusions. Jossie ear atelectasis or scarring left lung base stable. Right lung is clear. Thoracic compression fracture s and right rib fractures seen to better detail on the prior x-rays. IMPRESSION: No acute process. Thin linear atelectasis or scarring left lung base is stable. Right humerus AP lateral x-rays HISTORY: Right arm pain after lifting injury. FINDINGS: No fracture. No dislocation. No bone lesion. Small densities along the anterior and posteri or soft tissues of the lower arm perhaps due to artifact from something on the skin surface versus so ft tissue calcifications or foreign bodies if there was abrasion or penetrating trauma. IMPRESSION: No acute osseous injury. See above. Electronically signed by: Kevin Rascon MD (08/07/2021 11:46 PM) [facility]
[2021-08-07 23:54] LABS: CALCIUM 8.4 mg/dL (8.5-10.1); CREATININE 1.5 mg/dL (0.6-1.0); GFR 33.1; POTASSIUM 4.6 mmol/L (3.5-5.1)
[2021-08-07 23:59] LABS: ALBUMIN 3.2 g/dL (3.4-5.0); ALBUMIN/GLOBULIN RATIO 0.8 (1.0-1.7); MAGNESIUM 2.4 mg/dL (1.8-2.4); TOTAL BILIRUBIN 0.2 mg/dL (0.2-1.0); TOTAL PROTEIN 7.2 g/dL (6.4-8.2)
[2021-08-08] LABS: BILIRUBIN,URINE NEGATIVE (NEG); CLARITY,URINE CLEAR; COLOR,URINE YELLOW; NITRITE,URINE NEGATIVE (NEG); PROTEIN,URINE NEGATIVE (NEG-TRACE); UROBILINOGEN,URINE 0.2 mg/dL (0.2 mg/dL)
[2021-08-08 00:06] LABS: BACTERIA,URINE FEW /HPF (0-FEW); RBC,URINE 0 /HPF (0-2)
[2021-08-08 00:20] LABS: INFLUENZA A PATIENT NEGATIVE (NEGATIVE); INFLUENZA B PATIENT NEGATIVE (NEGATIVE)
[2021-08-08] MEDS ORDERED: IOHEXOL 350 MG/ML 100 ML VIAL. IV ONE (01:45)
[2021-08-08] MEDS ORDERED: CONTRAST GIVEN. MC PRN (02:00)
--- NOTE | 2021-08-08 02:09 | EKG ---
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
--- NOTE | 2021-08-08 02:16 | RAD ---
CT angiography chest with contrast PQRS statement: CT scans at this facility use dose reduction including either automated exposure cont rol, iterative reconstructions, and /or weight based radiation dosing via mA and kV modification when appropriate to reduce radiation dose to as low as reasonably achievable. Contrast: 90 mL Omnipaque 350 intravenous contrast with 3-D MIP reconstructions of the arteries acqui red. HISTORY: Dyspnea. History of pulmonary embolism. COMPARISON: CT chest January 10, 2020 FINDINGS: There are 11 rib-bearing vertebra presumably due to nonrib-bearing T12 thoracic vertebra. U sing this numbering of the vertebra there is a chronic T12 vertebral compression fracture which is st able. There is a T7 vertebral compression fracture with bony sclerosis and 50% height loss which is a ge-indeterminate but is new from prior imaging. Calcified plaque coronary arteries and thoracic aorta . Heart size normal. Esophagus unremarkable. No pulmonary artery emboli. No adenopathy in the chest. Surgical lumpectomy site with chronic seroma or fat necrosis right breast again demonstrated. Trachea and bronchi are unremarkable. Thin linear discoid atelectasis lung bases. Basilar right lower lobe 3 mm solid nodule adjacent diaphragm image 107 is new. IMPRESSION: 1. No acute process. No pulmonary artery emboli. 2. 3 mm solid nodule of the basilar right lower lobe adjacent of the diaphragm is new from prior imag ing in 2019. Consider follow-up CT chest imaging in 6 months. 3. Age-indeterminate mid thoracic vertebral compression fracture new from prior imaging as described above. Electronically signed by: Kevin Rascon MD (08/08/2021 2:14 AM) [facility]
[2021-08-08] MEDS ORDERED: PRED50TA PO (03:05)
[2021-08-08 04:00] VITALS: BP 185/85
--- NOTE | 2021-08-09 17:11 | NUR ---
IP: Informed pt of negative covid test. Pt verbalized understanding.
== END 2021-08-08 04:08 | disposition home or self-care (01) ==
LOC: ER 22:23
DX: S40.021A Contusion of right upper arm, initial encounter (principal); Z20.822 Contact with and (suspected) exposure to COVID-19; J44.1 Chronic obstructive pulmonary disease with (acute) exacerbation; I10 Essential (primary) hypertension; G89.29 Other chronic pain; Z90.710 Acquired absence of both cervix and uterus; X50.9XXA Other and unspecified overexertion or strenuous movements or postures, initial encounter; Y93.89 Activity, other specified; Y92.89 Other specified places as the place of occurrence of the external cause; Y99.8 Other external cause status
CPT/HCPCS: 36415; 71045; 71275; 73060; 80053; 81001; 83605; 83735; 83880; 84484; 85025; 87040; 87205; 87426; 87804; 93005; 94640; 96374; 99285; J2930; Q9967; U0003; U0005

== ENCOUNTER → 2021-10-06 | Outpatient (CLI) | payer BC ==
[~2021-10-06] MED LIST changes: +PRED50TA PO
--- NOTE | 2021-10-06 10:26 | KCIC ---
Right breast ultrasound: Reason for examination: Right breast pain medially. Comparison is made to previous study dated 02/24/2021. Ultrasound examination of the right breast and axilla was performed. In the area of clinical concern at the 3:00 position, there is no focal cystic or solid nodules seen. At the 8:00 position inferior to the scar, there is a residual seroma which is unchanged. No other c ystic or solid lesions are seen. No abnormal appearing lymph nodes are seen in the right axilla. IMPRESSION: Residual seroma at the 8:00 position. No abnormality in the area of clinical concern at the 3:00 position. Recommend routine mammographic follow-up. BI-RADS Category 2: Benign. "Our facility is accredited by the [employer] Mammography Program." This patient's information has been entered into a reminder system for the patient to be notified wit h the results of her examination and a target date for the next mammogram. Electronically signed by: Dalia Dillard MD (10/06/2021 10:23 AM) [id number]
== END ==
LOC: KCIC US 09:35
PROVIDERS: ATTEND Family Medicine
DX: N64.89 Other specified disorders of breast (principal); Z09 Encounter for follow-up examination after completed treatment for conditions other than malignant neoplasm
CPT/HCPCS: 76641